=== PATIENT | female | born 1985 | race American Indian/Alaskan Native ===

== ENCOUNTER 2016-06-01 07:01 | Emergency (ER) | payer SELFPAY ==
[2016-06-01 08:01] LABS: Basophils % (Auto) 0.5 % (0.0-1.8); Eosinophils % (Auto) 1.8 % (0.0-4.3); Hematocrit 37.3 % (30.3-42.9); Hemoglobin 12.6 gm/dl (10.1-14.3); Mean Corpuscular HGB Conc 34 % (30-34); Mean Corpuscular Hemoglobin 35 pg (28-32); Mean Corpuscular Volume 102 fl (79-97); Platelet Count 227 K/mm3 (140-440); Red Blood Count 3.66 M/mm3 (3.65-5.03); Red Cell Distribution Width 13.1 % (13.2-15.2); White Blood Count 5.2 K/mm3 (4.5-11.0)
[2016-06-01 08:15] LABS: Alanine Aminotransferase 14 units/L (7-56); Albumin 3.8 g/dL (3.9-5); Alkaline Phosphatase 79 units/L (35-129); BUN/Creatinine Ratio 8.57; Bilirubin,Total 0.7 mg/dL (0.1-1.2); Blood Urea Nitrogen 6 mg/dL (7-17); Calcium 8.4 mg/dL (8.4-10.2); Carbon Dioxide 27 mmol/L (22-30); Glucose 96 mg/dL (65-100); Lipase 14 units/L (13-60); Total Protein 7.7 g/dL (6.3-8.2)
[2016-06-01 08:16] LABS: Anion Gap 17 mmol/L; Chloride 101.1 mmol/L (98-107); Potassium 3.6 mmol/L (3.6-5.0); Sodium 141 mmol/L (137-145)
[2016-06-01] MEDS ORDERED: MORPHINE IV ONE (08:47)
[2016-06-01] MEDS ORDERED: NACL 0.9% 1000 ML 1,000 ML IV ONE (08:47)
[2016-06-01] MEDS ORDERED: ZOFRAN IV ONE (08:47)
[2016-06-01 08:53] LABS: Bacteria,Urine 1+ /HPF (Negative); Bilirubin,Urine NEG (Negative); Blood,Urine MOD (Negative); Ketones,Urine TR mg/dL (Negative); Leukocyte Esterase,Urine MOD (Negative); Mucus,Urine 2+ /HPF; Nitrite,Urine NEG (Negative); Protein,Urine <15 mg/dL mg/dL (Negative); Urobilinogen,Urine < 2.0 mg/dL (<2.0)
--- NOTE | 2016-06-01 08:53 | Emergency Department Report ---
HPI - General Chief Complaint: Abdominal Pain Time Seen by Provider: 06/01/16 08:39 - HPI HPI: Room 8 The patient is a 31-year-old female presenting with a chief complaint of nausea vomiting and abdominal pain. The patient states her symptoms began last night with nausea vomiting and diffuse abdominal cramping. Patient denies fever, dysuria, hematuria, vaginal discharge or abnormal vaginal bleeding. Patient states her last cycle occurred 2 weeks ago was within normal limits. Patient denies sick contacts. The patient currently gives her pain a score of 10/10. Location: Gastrointestinal system Duration: Constant since last night Quality: Cramping Severity: 10/10 Modifying factors: [see above] Context: [see above] Mode of transportation: [not driving] ED Past Medical Hx - Past Medical History Hx Asthma: Yes - Surgical History Past Surgical History?: No - Family History Family history: no significant - Social History Smoking Status: Former Smoker (none 5 years) Substance Use Type: Alcohol (occasional) - Medications Home Medications: Home Medications Medication Instructions Recorded Confirmed Last Taken Type ALBUTEROL Inhaler [Proair] 2 puff IH QID PRN 06/01/16 06/01/16 Unknown History Sulfamethoxazole/Trimethoprim 1 each PO BID #14 tablet 06/01/16 Unknown Rx [Bactrim DS TAB] traMADol [Ultram] 50 mg PO Q6HR PRN #10 tablet 06/01/16 Unknown Rx ED Review of Systems ROS: Stated complaint: VOMITING, ABDOMINAL PAIN, WEAK Other details as noted in HPI Comment: All other systems reviewed and negative Constitutional: denies: chills, fever Eyes: denies: eye pain, eye discharge, vision change ENT: denies: ear pain, throat pain Respiratory: denies: cough, shortness of breath, wheezing Cardiovascular: denies: chest pain, palpitations Endocrine: no symptoms reported Gastrointestinal: abdominal pain, nausea, vomiting. denies: diarrhea Genitourinary: denies: urgency, dysuria, discharge, abnormal menses Musculoskeletal: denies: back pain, joint swelling, arthralgia Skin: denies: rash, lesions Neurological: denies: headache, weakness, paresthesias Psychiatric: denies: anxiety, depression Hematological/Lymphatic: denies: easy bleeding, easy bruising Physical Exam - Physical Exam Vital Signs: Vital Signs 06/01/16 07:29 Temperature 98.6 F Pulse Rate 58 L Respiratory 18 Rate Blood Pressure 167/115 O2 Sat by Pulse 99 Oximetry Physical Exam: GENERAL: The patient is well-developed well-nourished female lying on stretcher not appearing to be in acute distress. [] HEENT: Normocephalic. Atraumatic. Extraocular motions are intact. NECK: Supple. Trachea midline CHEST/LUNGS: Clear to auscultation. There is no respiratory distress noted. HEART/CARDIOVASCULAR: Regular. There is no tachycardia. There is no gallop rub or murmur. ABDOMEN: Abdomen is soft, mild discomfort to palpation suprapubic and left lower quadrant. There is no rebound or guarding. Patient has normal bowel sounds. There is no abdominal distention. SKIN: There is no rash. There is no edema. There is no diaphoresis. NEURO: The patient is awake, alert, and oriented. The patient is cooperative. The patient has normal speech MUSCULOSKELETAL: There is no evidence of acute injury. ED Course Vital Signs 06/01/16 07:29 Temperature 98.6 F Pulse Rate 58 L Respiratory 18 Rate Blood Pressure 167/115 O2 Sat by Pulse 99 Oximetry ED Medical Decision Making - Lab Data Result diagrams: 06/01/16 07:43 06/01/16 07:43 Laboratory Tests 06/01/16 06/01/16 06/01/16 07:43 07:43 08:37 WBC 5.2 RBC 3.66 Hgb 12.6 Hct 37.3 MCV 102 H MCH 35 H MCHC 34 RDW 13.1 L Plt Count 227 Lymph % (Auto) 30.2 Fountain % (Auto) 8.6 H Eos % (Auto) 1.8 Baso % (Auto) 0.5 Lymph # 1.6 Fountain # 0.4 Eos # 0.1 Baso # 0.0 Seg Neutrophils % 58.9 Seg Neutrophils # 3.1 Sodium 141 Potassium 3.6 Chloride 101.1 Carbon Dioxide 27 Anion Gap 17 BUN 6 L Creatinine 0.7 Estimated GFR > 60 BUN/Creatinine Ratio 8.57 Glucose 96 Calcium 8.4 Total Bilirubin 0.7 AST 23 ALT 14 Alkaline Phosphatase 79 Total Protein 7.7 Albumin 3.8 L Albumin/Globulin Ratio 1.0 Lipase 14 Urine Color Yellow Urine Turbidity Slightly-cloudy Urine pH 6.0 Ur Specific Brewster 1.021 Urine Protein <15 mg/dl Urine Glucose (UA) Neg Urine Ketones Tr Urine Blood Mod Urine Nitrite Neg Urine Bilirubin Neg Urine Urobilinogen < 2.0 Ur Leukocyte Esterase Mod Urine WBC (Auto) 17.0 H Urine RBC (Auto) 9.0 U Epithel Cells (Auto) 14.0 H Urine Bacteria (Auto) 1+ Urine Mucus 2+ Urine Trichomonas 1+ Urine HCG, Qual Negative - Radiology Data Radiology results: report reviewed (CT abdomen and pelvis (report discussed with radiologist)), image reviewed (CT abdomen and pelvis) CT abdomen and pelvis (discussed with radiologist was written report is not available at this time)-no acute findings. Cholelithiasis. Small amount of free fluid in the pelvis could be physiologic. Left ovary appears plump - Differential Diagnosis gastroenteritis, diverticulitis, acute appendicitis Critical care attestation.: If time is entered above; I have spent that time in minutes in the direct care of this critically ill patient, excluding procedure time. ED Disposition Clinical Impression: Acute abdominal pain, Nausea & vomiting, Trichomonas vaginalis (TV) infection, UTI (urinary tract infection) Disposition: DISCHARGED TO HOME OR SELFCARE Is pt being admited?: No Does the pt Need Aspirin: No Condition: Stable Instructions: Sexually Transmitted Diseases (ED), Trichomoniasis (ED), Abdominal Pain (ED) Additional Instructions: Return to the emergency department immediately should you develop worsening symptoms, fever, inability to tolerate food or liquid or any other concerns. Prescriptions: Sulfamethoxazole/Trimethoprim [Bactrim DS TAB] 1 each PO BID #14 tablet traMADol [Ultram] 50 mg PO Q6HR PRN #10 tablet PRN Reason: Pain Referrals: PRIMARY CARE, [Primary Care Provider] - 3-5 Days [facility] [Outside] - 3-5 Days Time of Disposition: 11:05
[2016-06-01 08:55] LABS: Trichomonas,Urine 1+ /HPF
[2016-06-01] MEDS ORDERED: NACL ONE (09:27)
[2016-06-01] MEDS ORDERED: FLAGYL PO ONE (09:27)
[2016-06-01] MEDS ORDERED: XYLOCAINE 1% MPF 5 mL INFILTRATI ONE (09:28)
[2016-06-01] MEDS ORDERED: ZITHROMAX PO ONE (09:28)
[2016-06-01] MEDS ORDERED: ROCEPHIN IM ONE (09:28)
[2016-06-01] MEDS ORDERED: REGLAN IV ONE (09:28)
[2016-06-01] MEDS ORDERED: REGLAN IM ONE (10:00)
[2016-06-01] MEDS ORDERED: MORPHINE IM ONE (10:01)
--- NOTE | 2016-06-01 11:03 | Cat Scan Report ---
CT ABDOMEN AND PELVIS WITHOUT CONTRAST INDICATION: LLQ abdominal tenderness. COMPARISON: None similar. FINDINGS: Noncontrast abdomen and pelvis CT performed. LUNG BASES: Nonspecific distal esophageal wall thickening, not excluded for gastroesophageal reflux and/or hiatal hernia, amongst others. ABDOMEN: Please note that sensitivity to detect small visceral lesions is limited due to the absence of intravenous or oral contrast. Innumerable small calcified gallstones individually measuring on the order of 2-3 mm nearly fill the gallbladder. However, grossly unremarkable unenhanced liver, spleen, pancreas, adrenals, non-aneurysmal abdominal aorta, kidneys and the IVC. No ascites or size significant adenopathy. Few small, subcentimeter, mesenteric and retroperitoneal lymph nodes. Nonopacified GI tract evaluation limited, though grossly nonobstructive. Normal appendix. Mild colonic stool. PELVIS: Urinary bladder, uterus, adnexa/ovaries and the rectosigmoid demonstrate grossly normal CT appearance. Small pelvic free fluid measuring 23HU. No definite size significant adenopathy. Mild bony degenerative changes as lower thoracic mild degenerative spurring and T12 vertebral body sclerosis anterosuperiorly. CONCLUSION: No acute CT abnormality with cholelithiasis and few other few incidental findings, as above. Thank you for the opportunity to participate in this patient's care.
[2016-06-01 12:44] VITALS: BP 138/90
== END 2016-06-01 12:00 | disposition home or self-care (01) ==
LOC: ED 07:01
DX: R10.84 Generalized abdominal pain (principal); R11.2 Nausea with vomiting, unspecified; A59.01 Trichomonal vulvovaginitis; N39.0 Urinary tract infection, site not specified; J45.909 Unspecified asthma, uncomplicated; Z87.891 Personal history of nicotine dependence; Z88.8 Allergy status to other drugs, medicaments and biological substances
CPT/HCPCS: 36415; 74176; 80053; 81001; 81025; 83690; 85025; 96372; 99284; J0696; J2270; J2765

== ENCOUNTER 2017-03-14 01:50 | Emergency (ER) | payer OTHER ==
[2017-03-14] MEDS ORDERED: PROVENTIL IH ONE (04:51)
[2017-03-14] MEDS ORDERED: TYLENOL PO ONE (04:54)
--- NOTE | 2017-03-14 08:00 | XRay Report ---
FINAL REPORT EXAM: XR CHEST ROUTINE 2V HISTORY: cough and congestion TECHNIQUE: PA and lateral views of the chest were submitted. FINDINGS: The heart size is at the upper limits of normal. The lungs are clear. Pleural fluid is not seen. The bones and soft tissues appear well maintained. IMPRESSION: No active chest disease.
--- NOTE | 2017-03-14 08:21 | Emergency Department Report ---
HPI - General Chief Complaint: Upper Respiratory Infection Time Seen by Provider: 03/14/17 07:42 - HPI HPI: She is a 31-year-old female who presents to ED complaining of cough and congestion times one day. Patient states yesterday she began experiencing some throat aching and by last night she started coughing intermittently throughout the night which made to call the ambulance. Patient states she has a history of asthma as well as chronic bronchitis on albuterol inhalers. Patient denies any fever/chills/nausea/vomiting/abdominal pain this chest pain. ED Past Medical Hx - Past Medical History Hx Asthma: Yes Additional medical history: Bronchitis - Surgical History Past Surgical History?: No - Social History Smoking Status: Never Smoker Substance Use Type: None - Medications Home Medications: Home Medications Medication Instructions Recorded Confirmed Last Taken Type Sulfamethoxazole/Trimethoprim 1 each PO BID #14 tablet 06/01/16 Unknown Rx [Bactrim DS TAB] traMADol [Ultram] 50 mg PO Q6HR PRN #10 tablet 06/01/16 Unknown Rx ALBUTEROL Inhaler [ProAir HFA 2 puff IH QID PRN #1 pump 03/14/17 Unknown Rx Inhaler] Ibuprofen [Motrin] 800 mg PO Q8HR PRN #30 tablet 03/14/17 Unknown Rx Nystas/Diphen/Xyl Visc/Mylanta 15 ml PO TID PRN #60 ml 03/14/17 Unknown Rx [Magic Mouthwash] guaiFENesin ER [Mucinex ER] 600 mg PO Q12H #20 tablet.er 03/14/17 Unknown Rx ED Review of Systems ROS: Stated complaint: CHEST DISCOMFORT Other details as noted in HPI Constitutional: denies: chills, fever Eyes: denies: eye pain, eye discharge, vision change ENT: throat pain, congestion. denies: ear pain Respiratory: cough. denies: shortness of breath, wheezing Cardiovascular: denies: chest pain, palpitations Endocrine: no symptoms reported Gastrointestinal: denies: abdominal pain, nausea, vomiting, diarrhea Genitourinary: denies: urgency, dysuria, frequency, hematuria, discharge Musculoskeletal: denies: back pain, joint swelling, arthralgia Skin: denies: rash, lesions, pruritus Neurological: denies: headache, weakness, numbness, paresthesias, confusion Psychiatric: denies: anxiety, depression Hematological/Lymphatic: denies: easy bleeding, easy bruising Physical Exam - Physical Exam Vital Signs: Vital Signs 03/14/17 03/14/17 03/14/17 03:36 05:01 05:15 Temperature 98.4 F Pulse Rate 80 Pulse Rate [ 60 64 Anterior Bilateral Throughout] Respiratory 18 Rate Respiratory 18 18 Rate [Anterior Bilateral Throughout] Blood Pressure 144/85 O2 Sat by Pulse 99 Oximetry Physical Exam: GENERAL: Alert and oriented x3, no apparent distress, Normal Gait, atraumatic. HEAD: Head is normocephalic and a-traumatic. EYES: Extra ocular muscles are intact. Pupils are equal, round, and reactive to light and accommodation. EARS: symetrical, atraumatic, non tender, ear canal clear and moderate cerumen, tympanic membrance non inflamed. gross auditory nml bilaterally. NOSE: Nose symetrical, Nontender,Nares appeared normal. MOUTH:Mouth is well hydrated and without lesions. Tonsils nonerythematous or swollen, Uvula midline, Tongue not elevated. Mucous membranes are moist. Posterior pharynx clear, no exudate or lesions. Patent airways. NECK: Supple. Non edematous, No lymphadenopathy. Anterior cervical lymph node tenderness LUNGS: Symetrical with respiration, moderate wheezing bilaterally, no rales or crackles, No use of accessory muscles HEART: S1, S2 present, regular rate and rhythm without murmur, no rubs, no gallops. Non tender to palpation EXTREMITIES/MUSCULOSKELETAL: No cyanosis, clubbing, rash, lesions or edema. SKIN: Warm and dry, No lesions, No ulceration or induration present. ED Course Vital Signs 03/14/17 03/14/17 03/14/17 03:36 05:01 05:15 Temperature 98.4 F Pulse Rate 80 Pulse Rate [ 60 64 Anterior Bilateral Throughout] Respiratory 18 Rate Respiratory 18 18 Rate [Anterior Bilateral Throughout] Blood Pressure 144/85 O2 Sat by Pulse 99 Oximetry ED Medical Decision Making - Radiology Data Radiology results: report reviewed, image reviewed FINAL REPORT EXAM: XR CHEST ROUTINE 2V HISTORY: cough and congestion TECHNIQUE: PA and lateral views of the chest were submitted. FINDINGS: The heart size is at the upper limits of normal. The lungs are clear. Pleural fluid is not seen. The bones and soft tissues appear well maintained. IMPRESSION: No active chest disease. Transcribed By: RB Dictated By: JONN BARNEY MD Electronically Authenticated By: JONN BARNEY MD Signed Date/Time: 03/14/17 0357 - Medical Decision Making 31-year-old female presents with respiratory infection ED course: Patient received Solu-Medrol IM, respiratory breathing treatment, ED x-rays shows no acute pulmonary or cardiac disease. Vital signs normalized patient is satting at 100% on room air I discussed 3 findings with the patient. She was in no acute distress she is resting comfortably in ED. Suspicion of follow-up with primary care physician has referred I discussed the patient if symptoms worsen or new symptoms arise to return to ED immediately patient is not in respiratory distress Critical care attestation.: If time is entered above; I have spent that time in minutes in the direct care of this critically ill patient, excluding procedure time. ED Disposition Clinical Impression: URI with cough and congestion Disposition: -01 TO HOME OR SELFCARE Is pt being admited?: No Does the pt Need Aspirin: No Condition: Stable Instructions: Upper Respiratory Infection (ED), Chronic Bronchitis (ED) Additional Instructions: Make sure to follow up with the primary care physician as discussed. Take all your medications as you've been prescribed. If you have any worsening symptoms or develop new symptoms please return to ED immediately. Prescriptions: ALBUTEROL Inhaler [ProAir HFA Inhaler] 2 puff IH QID PRN #1 pump PRN Reason: Shortness Of Breath guaiFENesin ER [Mucinex ER] 600 mg PO Q12H #20 tablet.er Ibuprofen [Motrin] 800 mg PO Q8HR PRN #30 tablet PRN Reason: Pain Nystas/Diphen/Xyl Visc/Mylanta [Magic Mouthwash] 15 ml PO TID PRN #60 ml PRN Reason: Throat Pain Referrals: PRIMARY CAREMD [Primary Care Provider] - 3-5 Days [facility] [Outside] - 3-5 Days [facility] [Outside] - 3-5 Days [facility] [Outside] - 3-5 Days Forms: Work/School Release Form(ED) Time of Disposition: 08:59
[2017-03-14 08:37] VITALS: BP 136/87
== END 2017-03-14 09:42 | disposition home or self-care (01) ==
LOC: ED 01:50
DX: J06.9 Acute upper respiratory infection, unspecified (principal); J45.909 Unspecified asthma, uncomplicated
CPT/HCPCS: 71020; 81025; 87116; 87430; 93005; 93010; 94640; 96372; 99284; J2930

== ENCOUNTER 2017-08-24 07:55 | Emergency (ER) | payer SELFPAY ==
[2017-08-24 08:17] VITALS: BP 133/85
[2017-08-24] MEDS ORDERED: BACTRIM DS PO ONE (09:37)
[2017-08-24] MEDS ORDERED: TYLENOL PO ONE (09:37)
[2017-08-24] MEDS ORDERED: TORADOL IM ONE (09:37)
[2017-08-24] MEDS ORDERED: TESSALON PERLES PO ONE ×2 (09:37→09:39)
[2017-08-24] MEDS ORDERED: BACTRIM DS ONE (09:39)
[2017-08-24] MEDS ORDERED: TYLENOL ONE (09:40)
[2017-08-24] MEDS ORDERED: TORADOL ONE (09:40)
--- NOTE | 2017-08-24 09:42 | Emergency Department Report ---
- General Chief Complaint: Upper Respiratory Infection Stated Complaint: FLU LIKE SYMPTOMS Time Seen by Provider: 08/24/17 09:32 Source: patient Mode of arrival: Ambulatory Limitations: No Limitations - History of Present Illness Initial Comments: 32-year-old female with a past medical history of asthma presents to the hospital complains of body aches, chills, fevers today. Also noticed redness and swelling to left leg today and states she has cellulitis. Patient has had intermittent cellulitis in the same leg for the past several months. Body aches rated moderate in intensity. She denies shortness of breath. Patient did not receive a flu shot this season. Patient also experiencing intermittent nausea vomiting without abdominal pain. - Related Data Previous Rx's Medication Instructions Recorded Last Taken Type Sulfamethoxazole/Trimethoprim 1 each PO BID #14 tablet 06/01/16 Unknown Rx [Bactrim DS TAB] traMADol [Ultram] 50 mg PO Q6HR PRN #10 tablet 06/01/16 Unknown Rx ALBUTEROL Inhaler [ProAir HFA 2 puff IH QID PRN #1 pump 03/14/17 Unknown Rx Inhaler] Ibuprofen [Motrin] 800 mg PO Q8HR PRN #30 tablet 03/14/17 Unknown Rx Nystas/Diphen/Xyl Visc/Mylanta 15 ml PO TID PRN #60 ml 03/14/17 Unknown Rx [Magic Mouthwash] guaiFENesin ER [Mucinex ER] 600 mg PO Q12H #20 tablet.er 03/14/17 Unknown Rx Benzonatate [Tessalon Perles] 100 mg PO Q8HR PRN #30 capsule 08/24/17 Unknown Rx Naproxen [Naprosyn TAB] 500 mg PO BID #30 tablet 08/24/17 Unknown Rx Ondansetron [Zofran Odt] 4 mg PO Q8HR PRN #20 tab.rapdis 08/24/17 Unknown Rx Sulfamethoxazole/Trimethoprim 1 each PO BID #20 tablet 08/24/17 Unknown Rx [Bactrim DS TAB] Allergies Allergy/AdvReac Type Severity Reaction Status Date / Time hydrocodone Allergy Hives Verified 06/01/16 07:29 ED Review of Systems ROS: Stated complaint: FLU LIKE SYMPTOMS Other details as noted in HPI Comment: All other systems reviewed and negative ED Past Medical Hx - Past Medical History Hx Asthma: Yes Additional medical history: Bronchitis - Social History Smoking Status: Former Smoker Substance Use Type: Alcohol - Medications Home Medications: Home Medications Medication Instructions Recorded Confirmed Last Taken Type Sulfamethoxazole/Trimethoprim 1 each PO BID #14 tablet 06/01/16 Unknown Rx [Bactrim DS TAB] traMADol [Ultram] 50 mg PO Q6HR PRN #10 tablet 06/01/16 Unknown Rx ALBUTEROL Inhaler [ProAir HFA 2 puff IH QID PRN #1 pump 03/14/17 Unknown Rx Inhaler] Ibuprofen [Motrin] 800 mg PO Q8HR PRN #30 tablet 03/14/17 Unknown Rx Nystas/Diphen/Xyl Visc/Mylanta 15 ml PO TID PRN #60 ml 03/14/17 Unknown Rx [Magic Mouthwash] guaiFENesin ER [Mucinex ER] 600 mg PO Q12H #20 tablet.er 03/14/17 Unknown Rx Benzonatate [Tessalon Perles] 100 mg PO Q8HR PRN #30 capsule 08/24/17 Unknown Rx Naproxen [Naprosyn TAB] 500 mg PO BID #30 tablet 08/24/17 Unknown Rx Ondansetron [Zofran Odt] 4 mg PO Q8HR PRN #20 tab.rapdis 08/24/17 Unknown Rx Sulfamethoxazole/Trimethoprim 1 each PO BID #20 tablet 08/24/17 Unknown Rx [Bactrim DS TAB] ED Physical Exam - General Limitations: No Limitations - Other Other exam information: General: No limitations, patient is alert in no acute distress Head exam: Atraumatic, normocephalic Eyes exam: Normal appearance ENT: Moist mucous membrane, normal oropharynx, no exudate Neck exam: Normal inspection, full range of motion, no meningismus nontender Respiratory exam: Mild wheezing, no tachypnea or accessory muscle Cardiovascular: Normal rate and rhythm, normal heart sounds Abdomen: Soft, nondistended, and nontender, with normal bowel sounds, no rebound, or guarding Extremity: Full range of motion, left leg cellulitis Back: Normal Inspection, full range of motion, no tenderness Neurologic: Alert, oriented x3, cranial nerves intact, no motor or sensory deficit Psychiatric: normal affect, normal mood Skin: Left lower leg erythema, warmth, edema, tenderness to palpation ED Course Vital Signs 08/24/17 08:14 Temperature 100.3 F H Pulse Rate 105 H Respiratory 16 Rate Blood Pressure 133/85 O2 Sat by Pulse 96 Oximetry ED Medical Decision Making - Medical Decision Making Patient was treated with Bactrim for left leg cellulitis and symptomatic treatment URI symptoms. Despite mild wheezing on exam patient denies shortness of breath and needing a breathing treatment at this time. Patient has mild tachycardia likely related to low grade fever. Treated with Tylenol, Toradol, Bactrim, and Tessalon Perles. - Differential Diagnosis cellulitis, viral syndrome, influenza, pneumonia Critical Care Time: No Critical care attestation.: If time is entered above; I have spent that time in minutes in the direct care of this critically ill patient, excluding procedure time. ED Disposition Clinical Impression: Left leg cellulitis, Viral syndrome Disposition: TO HOME OR SELFCARE Is pt being admited?: No Condition: Stable Instructions: Cellulitis (ED), Viral Syndrome (ED) Additional Instructions: Take the medications as prescribed including Tylenol as needed for fever. Follow with the clinic or doctor provided. Return if symptoms worsen as indicated by her discharge instructions. Prescriptions: Benzonatate [Tessalon Perles] 100 mg PO Q8HR PRN #30 capsule PRN Reason: Cough Naproxen [Naprosyn TAB] 500 mg PO BID #30 tablet Ondansetron [Zofran Odt] 4 mg PO Q8HR PRN #20 tab.rapdis PRN Reason: Nausea And Vomiting Sulfamethoxazole/Trimethoprim [Bactrim DS TAB] 1 each PO BID #20 tablet Referrals: [facility] [Provider Group] - 3-5 Days BRANDON PETERS JR, MD [Staff Physician] - 3-5 Days Time of Disposition: 09:43 (d/c after meds)
== END 2017-08-24 09:57 | disposition home or self-care (01) ==
LOC: ED 07:55
DX: L03.116 Cellulitis of left lower limb (principal); B34.9 Viral infection, unspecified; J45.909 Unspecified asthma, uncomplicated; Z87.891 Personal history of nicotine dependence; Z88.6 Allergy status to analgesic agent
CPT/HCPCS: 96372; 99282; J1885

== ENCOUNTER 2019-08-24 21:40 | Emergency (ER) | payer SELFPAY ==
[2019-08-24 23:09] LABS: Basophils % (Auto) 0.3 % (0.0-1.8); Eosinophils # (Auto) 0.1 K/mm3 (0.0-0.4); Lymphocytes # (Auto) 1.5 K/mm3 (1.2-5.4); Lymphocytes % (Auto) 20.3 % (13.4-35.0); Monocytes # (Auto) 0.7 K/mm3 (0.0-0.8); Monocytes % (Auto) 10.2 % (0.0-7.3)
[2019-08-24 23:26] LABS: Alanine Aminotransferase 13 units/L (7-56); Albumin 3.4 g/dL (3.9-5); BUN/Creatinine Ratio 13; Blood Urea Nitrogen 12 mg/dL (7-17); Calcium 8.6 mg/dL (8.4-10.2); Hemolysis Index 2
[2019-08-24 23:28] LABS: Hematocrit 35.6 % (30.3-42.9); Hemoglobin 11.8 gm/dl (10.1-14.3); Mean Corpuscular HGB Conc 33 % (30-34); Mean Corpuscular Volume 101 fl (79-97); Platelet Count 272 K/mm3 (140-440); Red Blood Count 3.53 M/mm3 (3.65-5.03); Red Cell Distribution Width 12.6 % (13.2-15.2)
[2019-08-24 23:32] LABS: INR 1.1 (0.87-1.13)
[2019-08-25 05:23] VITALS: BP 120/63
--- NOTE | 2019-08-26 20:31 | Emergency Department Report ---
- General Chief complaint: Extremity Injury, Lower Stated complaint: LEFT LEG PAIN Time Seen by Provider: 08/25/19 03:54 Source: patient Mode of arrival: Ambulatory Limitations: No Limitations - History of Present Illness Initial comments: 34-year-old morbidly obese abdomen female resents emerged department complaining of reemergence of redness pain swelling and warmth to her left lower extremity Tetanus Up to Date: yes Location: generalized, LLE (Area of the left ankle and lateral aspect of the tibia) Severity: mild, moderate Quality: dull Consistency: constant Worsens with: none Context: none Associated symptoms: denies other symptoms Treatments Prior to Arrival: none - Related Data Previous Rx's Medication Instructions Recorded Last Taken Type Cephalexin [Keflex] 500 mg PO QID 4 Days #16 capsule 05/21/18 Unknown Rx Ibuprofen [Ibuprofen 400] 400 mg PO BID PRN #14 tablet 05/21/18 Unknown Rx levoFLOXacin [Levaquin] 750 mg PO QDAY 4 Days #4 tablet 05/21/18 Unknown Rx Ketorolac [Toradol] 10 mg PO Q6H PRN #15 tablet 08/25/19 Unknown Rx Sulfamethoxazole/Trimethoprim 1 each PO BID #20 tablet 08/25/19 Unknown Rx [Bactrim Ds] cephALEXin [Keflex] 500 mg PO Q6HR #40 capsule 08/25/19 Unknown Rx Allergies Allergy/AdvReac Type Severity Reaction Status Date / Time hydrocodone Allergy Hives Verified 05/17/18 16:53 Abscess Boil HPI - HPI Chief Complaint: Extremity Injury, Lower Stated Complaint: LEFT LEG PAIN Time Seen by Provider: 08/25/19 03:54 Home Medications: Previous Rx's Medication Instructions Recorded Last Taken Type Cephalexin [Keflex] 500 mg PO QID 4 Days #16 capsule 05/21/18 Unknown Rx Ibuprofen [Ibuprofen 400] 400 mg PO BID PRN #14 tablet 05/21/18 Unknown Rx levoFLOXacin [Levaquin] 750 mg PO QDAY 4 Days #4 tablet 05/21/18 Unknown Rx Ketorolac [Toradol] 10 mg PO Q6H PRN #15 tablet 08/25/19 Unknown Rx Sulfamethoxazole/Trimethoprim 1 each PO BID #20 tablet 08/25/19 Unknown Rx [Bactrim Ds] cephALEXin [Keflex] 500 mg PO Q6HR #40 capsule 08/25/19 Unknown Rx Allergies/Adverse Reactions: Allergies Allergy/AdvReac Type Severity Reaction Status Date / Time hydrocodone Allergy Hives Verified 05/17/18 16:53 ED Review of Systems ROS: Stated complaint: LEFT LEG PAIN Other details as noted in HPI Comment: All other systems reviewed and negative ED Past Medical Hx - Past Medical History Previous Medical History?: Yes Hx Congestive Heart Failure: No Hx Asthma: Yes Additional medical history: Bronchitis, recurrent BLL cellulitis requiring hospitalization - Surgical History Past Surgical History?: No - Social History Smoking Status: Current Some Day Smoker Substance Use Type: Alcohol - Medications Home Medications: Home Medications Medication Instructions Recorded Confirmed Last Taken Type Cephalexin [Keflex] 500 mg PO QID 4 Days #16 capsule 05/21/18 Unknown Rx Ibuprofen [Ibuprofen 400] 400 mg PO BID PRN #14 tablet 05/21/18 Unknown Rx levoFLOXacin [Levaquin] 750 mg PO QDAY 4 Days #4 tablet 05/21/18 Unknown Rx Ketorolac [Toradol] 10 mg PO Q6H PRN #15 tablet 08/25/19 Unknown Rx Sulfamethoxazole/Trimethoprim 1 each PO BID #20 tablet 08/25/19 Unknown Rx [Bactrim Ds] cephALEXin [Keflex] 500 mg PO Q6HR #40 capsule 08/25/19 Unknown Rx ED Physical Exam - General Limitations: No Limitations General appearance: alert, in no apparent distress - Head Head exam: Present: atraumatic, normocephalic - Eye Eye exam: Present: normal appearance - ENT ENT exam: Present: mucous membranes moist - Neck Neck exam: Present: normal inspection - Respiratory Respiratory exam: Present: normal lung sounds bilaterally. Absent: respiratory distress - Cardiovascular Cardiovascular Exam: Present: regular rate, normal rhythm. Absent: systolic murmur, diastolic murmur, rubs, gallop - GI/Abdominal GI/Abdominal exam: Present: soft, normal bowel sounds - Extremities Exam Extremities exam: Present: normal inspection, tenderness - Expanded Lower Extremity Exam Left Upper Leg exam: Present: normal inspection Knee exam: Present: normal inspection Lower Leg exam: Present: full ROM, tenderness, laceration, erythema. Absent: deformity, crepidus, dislocation 1 - Some ecchymosis 2 - Cellulitis with some swelling and warmth no lymphangitis is noted pulses 2+ capillary refill is brisk - Back Exam Back exam: Present: normal inspection - Neurological Exam Neurological exam: Present: alert, oriented X3 - Psychiatric Psychiatric exam: Present: normal affect, normal mood - Skin Skin exam: Present: warm, dry, intact, normal color. Absent: rash ED Course Vital Signs 08/24/19 08/25/19 08/25/19 21:58 03:25 05:22 Temperature 99.5 F 98.7 F 98.2 F Pulse Rate 115 H 79 72 Respiratory 14 20 18 Rate Blood Pressure 147/93 160/109 Blood Pressure 120/63 [Left] O2 Sat by Pulse 98 96 100 Oximetry ED Medical Decision Making - Lab Data Result diagrams: 08/24/19 22:44 08/24/19 22:44 Critical care attestation.: If time is entered above; I have spent that time in minutes in the direct care of this critically ill patient, excluding procedure time. ED Disposition Clinical Impression: Cellulitis Disposition: DC-01 TO HOME OR SELFCARE Is pt being admited?: No Does the pt Need Aspirin: No Condition: Stable Instructions: Cellulitis (ED) Additional Instructions: Please follow-up for wound reevaluation in 2 to 3 days Prescriptions: Sulfamethoxazole/Trimethoprim [Bactrim Ds] 1 each PO BID #20 tablet cephALEXin [Keflex] 500 mg PO Q6HR #40 capsule Ketorolac [Toradol] 10 mg PO Q6H PRN #15 tablet PRN Reason: Pain Referrals: DENNISE GRIFFIN MD [Staff Physician] - 3-5 Days PRIMARY CAREMD [Primary Care Provider] - 3-5 Days Forms: Work/School Release Form(ED)
== END 2019-08-25 05:45 | disposition home or self-care (01) ==
LOC: ED 21:40
DX: L03.116 Cellulitis of left lower limb (principal); J45.909 Unspecified asthma, uncomplicated; F17.200 Nicotine dependence, unspecified, uncomplicated; Z79.1 Long term (current) use of non-steroidal anti-inflammatories (NSAID); Z79.2 Long term (current) use of antibiotics; Z79.899 Other long term (current) drug therapy; Z88.8 Allergy status to other drugs, medicaments and biological substances
CPT/HCPCS: 36415; 80053; 82140; 82805; 85025; 85610; 87040